=== PATIENT | female | born 1990 | race Caucasian/White ===

== ENCOUNTER 2017-01-05 14:32 | Emergency (ER) | payer BC, OTHER ==
[~2017-01-05] VITALS: Ht 160 cm; Wt 68.9 kg
[2017-01-05 14:45] VITALS: TEMP 36.8; Ht 160 cm; Wt 68.9 kg
[2017-01-05] MEDS ORDERED: PROMETHAZINE HCL 25 MG TAB PO ONE (15:15)
--- NOTE | 2017-01-05 15:26 | EMERGENCY ROOM VISIT NOTE ---
History Report prepared by Behzadibjohnson: Hal Hilliard Under the Supervision of: Dr. Azar Merchant M.D. First contact with patient: 15:02 Chief Complaint: HEAD INJURY (MINOR) Stated Complaint: HEAD TRAUMA History of Present Illness The patient is a 26 year old female who presents to the Emergency Room with complaints of a persistent headache starting yesterday. She was spiked on the head twice with a volleyball yesterday. Since then she has been having visual changes, confusion, trouble with retaining information, slurred speech, bad mood , and vomiting. She has vomited every time she has attempted to eat. She currently rates a headache intensity of 7-8/10. She took Naproxen and Neurontin this morning without relief. She took Tylenol about 3 hours ago without relief. The patient had some trouble sleeping last night. The patient has been at [facility] for the past 2 weeks for drug abuse. She is supposed to be at rehab for 30 days. She denies any drug withdrawal symptoms. She does not have any medical problems. She has a history of concussions. She denies loss of consciousness, or any other complaints. Source of History: patient Onset: yesterday Position: head Symptom Intensity: 7-8/10 Timing: other (persistent) Modifying Factors (Relieving): tylenol (without relief), other (Naproxen and Neurontin this morning without relief) Associated Symptoms: + vomiting, No LOC Review of Systems See HPI for pertinent positives & negatives. A total of 10 systems reviewed and were otherwise negative. Past Medical & Surgical Medical Problems: (1) H/O drug abuse (2) H/O multiple concussions Family History Diabetes mellitus FH: heart disease Hypertension Social History Smoking Status: Current Every Day Smoker Marital Status: single Occupation Status: unemployed Current/Historical Medications Scheduled Bupropion (Wellbutrin Sr), 150 MG PO QAM Cyanocobalamin (Vitamin B12), 1,000 MCG PO DAILY Gabapentin (Neurontin), 300 MG PO TID Loperamide Hcl (Imodium), 4 MG PO DIRECTED Metoprolol Tartrate (Lopressor) (Lopressor), 25 MG PO BID Multivitamin (Multivitamin), 1 TAB PO DAILY Naproxen (Naprosyn), 500 MG PO QAM Trazodone Hcl (Trazodone), 100 MG PO HS Scheduled PRN Acetaminophen (Tylenol), 650 MG PO QID PRN for prn Aluminum/Magnesium/Simeth (Maalox Max Susp), 30 ML PO DAILY PRN for prn Famotidine (Pepcid), 20 MG PO BID PRN for prn Hydroxyzine Pamoate (Vistaril), 50 MG PO QID PRN for prn Ibuprofen (Ibuprofen), 600 MG PO QID PRN for Pain Melatonin (Melatonin Maximum Strengt), 5 MG PO HS PRN for Sleep Naloxone HCl (Naloxone HCl), 0.4 MG IM TID PRN for prn Naproxen (Naprosyn), 250 MG PO HS PRN for prn Promethazine Hcl (Phenergan), 25 MG PO Q6H PRN for Nausea Allergies Coded Allergies: Ondansetron (Unverified Allergy, Unknown, anaphylaxis, 01/05/17) Tramadol (Unverified Allergy, Unknown, rash, 01/05/17) Physical Exam Vital Signs Date Time Temp Pulse Resp B/P (MAP) Pulse Ox O2 Delivery O2 Flow Rate FiO2 01/05/17 16:33 75 20 135/82 98 01/05/17 14:50 18 01/05/17 14:45 36.8 89 20 101/67 98 Room Air Physical Exam GENERAL: Patient is in no acute distress. HEENT: No acute trauma, normocephalic atraumatic, mucous membranes moist, no nasal congestion, no scleral icterus. Pupils are equal, round, and reactive to light. NECK: No stridor, no adenopathy, no meningismus, trachea is midline. LUNGS: Clear to auscultation bilaterally, no wheeze, no rhonchi, breath sounds equal. HEART: Without murmurs gallops or rubs, regular rate and rhythm. ABDOMEN: Soft, nontender, bowel sounds positive, no hernias, no peritonitis. EXTREMITIES: No cyanosis or edema, full range of motion of all the joints without pain or difficulty, no signs for acute trauma. NEUROLOGIC: Oriented x 3, no acute motor or sensory deficits, no focal weakness. No cerebellar dysfunction or pronator drift. SKIN: No rash, no jaundice, no diaphoresis. Medical Decision & Procedures ER Provider Diagnostic Interpretation: CT results as stated below per my review and radiologist interpretation: CT SCAN OF THE BRAIN WITHOUT IV CONTRAST CLINICAL HISTORY: Trauma. Headache. COMPARISON STUDY: No priors. TECHNIQUE: Unenhanced axial CT scan of the brain is performed from the vertex to the skull base. Automated dose control exposure was utilized. CT DOSE: 537.48 mGy.cm FINDINGS: Brain parenchyma: The brain parenchyma is normal in appearance. There is no hemorrhage, mass effect, or evidence of acute territorial ischemia by CT criteria. Kelly-white matter is preserved. No extra-axial fluid collection is seen. Ventricles, sulci, cisterns: Normal in configuration. Intracranial vasculature: The visualized intracranial vasculature at the skull base is normal in appearance. Calvarium: There is no depressed calvarial fracture. Sinuses and mastoids: The visualized paranasal sinuses are clear. The mastoid air cells are well pneumatized. Orbits: The bony orbits are grossly intact. IMPRESSION: No acute intracranial abnormality. Electronically signed by: Azar Melgar M.D. 01/05/2017 3:35 PM Dictated Date/Time: 01/05/2017 3:33 PM Medications Administered Medications (Trade) Dose Ordered Sig/Rebeka Route Start Time Stop Time Status Last Admin Dose Admin Promethazine HCl (Phenergan Tab) 25 mg NOW ONCE PO 01/05/17 15:15 01/05/17 15:16 DC 01/05/17 15:19 25 MG ED Course 1502: The patient was evaluated in room C09. A complete history and physical exam was performed. 1515: Promethazine HCl 25 mg PO 1555: Reevaluated the patient. Discussed results and discharge instructions: She verbalized understanding and agreement. The patient is ready for discharge. Medical Decision Differential diagnosis includes but is not limited to intracranial bleeding, skull fracture, intracranial mass, concussion, withdrawal, dehydration. The patient presents with concussion type symptoms after being struck in the head a few times yesterday while playing volleyball. On exam, there are no focal neurologic deficits. She has not had syncope. She is not febrile. She is here because she has had head injuries in the past and was concerned. The patient was given oral Phenergan for nausea. She has done well with this medication. A brain CT was done, no acute bleed or mass effect, no skull fracture. The patient likely has a concussion. She was reassured by the negative CT scan. She is being discharged back to [facility] to complete her rehabilitation. The patient was given Phenergan to use for nausea. She was told to avoid activity where she might strike her head again, she was instructed on minimizing her concentration. Rest was encouraged. Impression Primary Impression: Concussion Scribe Attestation The scribe's documentation has been prepared under my direction and personally reviewed by me in its entirety. I confirm that the note above accurately reflects all work, treatment, procedures, and medical decision making performed by me. Departure Information Dispostion Home / Self-Care Prescriptions Promethazine Hcl (Phenergan) 25 Mg Tab 25 MG PO Q6H Y for Nausea, #24 TAB Prov: Azar Merchant M.D. 01/05/17 Referrals No Doctor, Assigned (PCP) Forms HOME CARE DOCUMENTATION FORM, IMPORTANT VISIT INFORMATION Patient Instructions ED Concussion, My [facility] Additional Instructions rest naproxen or tylenol for pain phenergan 1 tab every 6 hours for nausea rest is salas no physical activity that would put you at risk of hitting your head again for 1 month no prolonged concentration as discussed return if worsening brain CT today was normal
--- NOTE | 2017-01-05 15:37 | DIAGNOSTIC IMAGING REPORT ---
CT SCAN OF THE BRAIN WITHOUT IV CONTRAST CLINICAL HISTORY: Trauma. Headache. COMPARISON STUDY: No priors. TECHNIQUE: Unenhanced axial CT scan of the brain is performed from the vertex to the skull base. Automated dose control exposure was utilized. CT DOSE: 537.48 mGy.cm FINDINGS: Brain parenchyma: The brain parenchyma is normal in appearance. There is no hemorrhage, mass effect, or evidence of acute territorial ischemia by CT criteria. Kelly-white matter is preserved. No extra-axial fluid collection is seen. Ventricles, sulci, cisterns: Normal in configuration. Intracranial vasculature: The visualized intracranial vasculature at the skull base is normal in appearance. Calvarium: There is no depressed calvarial fracture. Sinuses and mastoids: The visualized paranasal sinuses are clear. The mastoid air cells are well pneumatized. Orbits: The bony orbits are grossly intact. IMPRESSION: No acute intracranial abnormality. Electronically signed by: Azar Melgar M.D. 01/05/2017 3:35 PM Dictated Date/Time: 01/05/2017 3:33 PM
[2017-01-05] MEDS ORDERED: MULT-506 PO (15:38)
[2017-01-05] MEDS ORDERED: METO25TA56 PO (15:38)
[2017-01-05] MEDS ORDERED: NALO0.4I4 IM (15:38)
[2017-01-05] MEDS ORDERED: GABA-113 PO (15:38)
[2017-01-05] MEDS ORDERED: MELATAB2 PO (15:38)
[2017-01-05] MEDS ORDERED: IMD2X PO (15:38)
[2017-01-05] MEDS ORDERED: NAPR-1169 PO (15:38)
[2017-01-05] MEDS ORDERED: ALUMSUS2 PO (15:38)
[2017-01-05] MEDS ORDERED: ACET-1311 PO (15:38)
[2017-01-05] MEDS ORDERED: BUPR-79 PO (15:38)
[2017-01-05] MEDS ORDERED: CYAN100020 PO (15:38)
[2017-01-05] MEDS ORDERED: MTR600 PO (15:38)
[2017-01-05] MEDS ORDERED: HYDR50CA2 PO (15:38)
[2017-01-05] MEDS ORDERED: FAMO20TA11 PO (15:38)
[2017-01-05] MEDS ORDERED: NAPR250T2 PO (15:38)
[2017-01-05] MEDS ORDERED: TRAZ100T29 PO (15:38)
[2017-01-05] MEDS ORDERED: PROM25TA9 PO (16:11)
[2017-01-05 16:33] VITALS: BP 135/82; PULSE 75; O2SAT 98
== END 2017-01-05 16:36 | disposition home or self-care (01) ==
LOC: C.EDB 14:34 → C.EDC 16:36
DX: S06.0X0A Concussion without loss of consciousness, initial encounter (principal); W21.06XA Struck by volleyball, initial encounter; Y93.68 Activity, volleyball (beach) (court); F17.200 Nicotine dependence, unspecified, uncomplicated; Z83.3 Family history of diabetes mellitus; Z82.49 Family history of ischemic heart disease and other diseases of the circulatory system